=== PATIENT | male | born 1995 | race American Indian/Alaskan Native ===

== ENCOUNTER 2017-10-13 18:06 | Emergency (ER) | payer SELFPAY ==
[2017-10-13 18:42] VITALS: BP 120/74
--- NOTE | 2017-10-13 20:15 | Emergency Department Report ---
Chief Complaint: Medical Clearance Stated Complaint: CHECK UP Time Seen by Provider: 10/13/17 19:49 - HPI History of Present Illness: This is a 22-year-old male nontoxic, well nourished in appearance, no acute signs of distress presents to the ED for a check-up. Patient denies any testicular pain or swelling. Patient denies any penile discharge. Patient denies any penile ulcers or lesions. Patient stated that his girlfriend has UTI symptoms and he wants to be tested as well. Patient stated he is asymptomatic. Patient denies any nausea, vomiting, chest pain, shortness of breathe, fever, chills, headache, back pain, numbness, tingling, stiff neck. Patient denies any urinary symptoms. Patient denies any PMH. - Exam Vital Signs: Vital Signs 10/13/17 18:40 Temperature 98.2 F Pulse Rate 76 Respiratory 16 Rate Blood Pressure 120/74 O2 Sat by Pulse 100 Oximetry Physical Exam: GENERAL: The patient is a well-developed, well-nourished in no apparent distress. Patient is alert and acting appropriately for age. Alert and oriented 3, no apparent distress, normal gait, atraumatic. LUNGS: Clear to auscultation. Non labor breathing. No intercostal retractions. Symmetrical with respiration, no wheezing, no rales, or crackles. HEART: Regular rate and rhythm without murmur, rubs or gallops. No reproducible. S1, S2 present, regular rate and rhythm without murmur, no rubs, no gallops. MSE screening note: Focused history and physical exam performed. Due to findings the following was ordered: ED Medical Decision Making - Medical Decision Making This is a 22-year-old male that presents with nonmedical emergency. Patient is stable and was examined by me. Patient is asymptomatic and denies any symptoms. Patient states he just wants to be tested for STD. Hydrator has approached patient for a co-pay but patient refused. I will refer the patient [facility]. At time of discharge, the patient does not seem toxic or ill in appearance. No acute signs of distress noted. Patient agrees to discharge treatment plan of care. No further questions noted by the patient. ED Disposition for MSE Clinical Impression: General medical exam Disposition: TO HOME OR SELFCARE Is pt being admited?: No Does the pt Need Aspirin: No Condition: Stable Additional Instructions: Follow-up with a primary care doctor/[facility] in 3-5 days or if symptoms worsen and continue return to emergency room as soon as possible. Referrals: PRIMARY CARE, [Primary Care Provider] - 3-5 Days
== END 2017-10-13 20:20 | disposition home or self-care (01) ==
LOC: ED 18:06
DX: Z00.00 Encounter for general adult medical examination without abnormal findings (principal); Z88.8 Allergy status to other drugs, medicaments and biological substances
CPT/HCPCS: 99282

== ENCOUNTER 2017-12-07 18:48 | Emergency (ER) | payer SELFPAY ==
[2017-12-07 19:31] VITALS: BP 122/61
[2017-12-07 21:03] LABS: Bilirubin,Urine NEG (Negative); Blood,Urine NEG (Negative); Color,Urine Yellow (Yellow); Mucus,Urine 2+ /HPF
[2017-12-07 21:05] LABS: WBC,Urine > 182.0 /HPF (0.0-6.0)
[2017-12-08] MEDS ORDERED: ROCEPHIN IM ONE (00:47)
[2017-12-08] MEDS ORDERED: XYLOCAINE 1% MPF 5 mL INFILTRATI ONE (00:47)
[2017-12-08] MEDS ORDERED: ZITHROMAX PO ONE (00:47)
--- NOTE | 2017-12-08 01:04 | Emergency Department Report ---
ED Male HPI - General Chief complaint: Urogenital-Male Stated complaint: STD CHECK Time Seen by Provider: 12/08/17 00:45 Source: patient Mode of arrival: Ambulatory Limitations: No Limitations - History of Present Illness Initial comments: Patient is a 22-year-old -[place] male who presents for dysuria or frequency urgency. Discharge yellow-green 2 weeks states STI is no abdominal pain no nausea vomiting no fever no hematuria requested treatment for same UA noted for large leukocytes and large bacteria lysed large WBCs MD Complaint: dysuria Onset/Timin -: week(s) Location: penis Radiation: none Severity: moderate Severity scale (0 -10): 5 Quality: burning Consistency: intermittent Worsens with: urination discharge - Related Data Previous Rx's Medication Instructions Recorded Last Taken Type Ciprofloxacin HCl [Cipro] 500 mg PO BID #20 tablet 12/08/17 Unknown Rx Doxycycline [Vibramycin CAP] 100 mg PO BID #20 capsule 12/08/17 Unknown Rx Allergies Allergy/AdvReac Type Severity Reaction Status Date / Time bismuth subsalicylate AdvReac Vomiting Verified 06/15/15 11:46 [From Pepto-Bismol] ED Review of Systems ROS: Stated complaint: STD CHECK Other details as noted in HPI Constitutional: denies: chills, fever Eyes: denies: eye pain, eye discharge, vision change ENT: denies: ear pain, throat pain Respiratory: denies: cough, shortness of breath, wheezing Cardiovascular: denies: chest pain, palpitations Endocrine: no symptoms reported Gastrointestinal: denies: abdominal pain, nausea, diarrhea Genitourinary: urgency, dysuria, frequency, discharge. denies: hematuria, testicular pain, testicular mass Musculoskeletal: denies: back pain, joint swelling, arthralgia Skin: denies: rash, lesions Neurological: denies: headache, weakness, paresthesias Psychiatric: denies: anxiety, depression Hematological/Lymphatic: denies: easy bleeding, easy bruising ED Past Medical Hx - Past Medical History Previous Medical History?: No - Surgical History Past Surgical History?: No - Social History Smoking Status: Never Smoker Substance Use Type: None - Medications Home Medications: Home Medications Medication Instructions Recorded Confirmed Last Taken Type Ciprofloxacin HCl [Cipro] 500 mg PO BID #20 tablet 12/08/17 Unknown Rx Doxycycline [Vibramycin CAP] 100 mg PO BID #20 capsule 12/08/17 Unknown Rx ED Physical Exam - General Limitations: No Limitations General appearance: alert, in no apparent distress - Head Head exam: Present: atraumatic, normocephalic - Eye Eye exam: Present: normal appearance - ENT ENT exam: Present: mucous membranes moist - Neck Neck exam: Present: normal inspection - Respiratory Respiratory exam: Present: normal lung sounds bilaterally. Absent: respiratory distress - Cardiovascular Cardiovascular Exam: Present: regular rate, normal rhythm. Absent: systolic murmur, diastolic murmur, rubs, gallop - GI/Abdominal GI/Abdominal exam: Present: soft, normal bowel sounds - Rectal Rectal exam: Present: deferred - exam: Present: other (exam deferred ) - Extremities Exam Extremities exam: Present: normal inspection - Back Exam Back exam: Present: normal inspection - Neurological Exam Neurological exam: Present: alert, oriented X3 - Psychiatric Psychiatric exam: Present: normal affect, normal mood - Skin Skin exam: Present: warm, dry, intact, normal color. Absent: rash ED Course Vital Signs 12/07/17 12/07/17 19:29 19:42 Temperature 98.0 F 98 F Pulse Rate 73 63 Respiratory 18 16 Rate Blood Pressure 122/61 122/61 O2 Sat by Pulse 99 96 Oximetry ED Medical Decision Making - Medical Decision Making This is an STI with a UTI patient Rocephin 1 g azithromycin 1 g was DC'd home with doxycycline by mouth twice a day for 10 days patient will follow with [facility] Department for HSV HIV Screening patient verbalizes agreement and understanding with same patient for DC'd home in stable condition at this time Critical care attestation.: If time is entered above; I have spent that time in minutes in the direct care of this critically ill patient, excluding procedure time. ED Disposition Clinical Impression: STD (male) UTI (urinary tract infection) Qualifiers: Urinary tract infection type: acute cystitis Hematuria presence: without hematuria Qualified Code(s): N30.00 - Acute cystitis without hematuria Disposition: DC- TO HOME OR SELFCARE Is pt being admited?: No Does the pt Need Aspirin: No Condition: Good Instructions: Sexually Transmitted Diseases (ED), Urinary Tract Infection in Men (ED) Prescriptions: Ciprofloxacin HCl [Cipro] 500 mg PO BID #20 tablet Doxycycline [Vibramycin CAP] 100 mg PO BID #20 capsule Referrals: PRIMARY CARE, [Primary Care Provider] - 3-5 Days Forms: Work/School Release Form(ED) Time of Disposition: 01:10
== END 2017-12-08 01:22 | disposition home or self-care (01) ==
LOC: ED 18:48
DX: N30.00 Acute cystitis without hematuria (principal); Z20.2 Contact with and (suspected) exposure to infections with a predominantly sexual mode of transmission; Z88.8 Allergy status to other drugs, medicaments and biological substances
CPT/HCPCS: 81001; 96372; 99283; J0696